=== PATIENT | female | born 1980 | race Two or more races ===

== ENCOUNTER 2021-05-19 11:00 | Emergency (ER) | payer BC, MEDICAID ==
[~2021-05-19] VITALS: Ht 172.7 cm; Wt 81.8 kg
[2021-05-19 16:09] VITALS: BP 116/71
== END 2021-05-19 16:19 | disposition home or self-care (01) ==
LOC: EMS 12:25
DX: M25.462 Effusion, left knee (principal); F17.210 Nicotine dependence, cigarettes, uncomplicated
CPT/HCPCS: 93971; 99284; 73562-TC; Z7502